=== PATIENT | female | born 1980 | race Caucasian/White ===

== ENCOUNTER 2017-02-11 10:24 | Emergency (ER) | payer OTHER ==
[~2017-02-11] VITALS: Ht 162.6 cm; Wt 68.2 kg
[2017-02-11] MEDS ORDERED: CELE40TA PO (10:34)
[2017-02-11] MEDS ORDERED: PROMETHAZINE INJ 25 MG/ML VIAL (J2550) IV ONE (11:00)
[2017-02-11] MEDS ORDERED: NS 500 ML IV ONE ×2 (11:00→13:30)
[2017-02-11] MEDS ORDERED: KETOROLAC 30 MG/ML VIAL (J1885) IV ONE (11:00)
[2017-02-11 11:09] LABS: BASO # 0.1 K/mm3 (0.0-0.2); BASO % 0.8 % (0.0-1.0); EOS # 0.1 K/mm3 (0.0-0.50); EOS % 1.4 % (0.0-3.0); LARGE UNSTAINED CELL # 0.1 K/mm3 (0.0-0.4); LYMPH # 2.5 K/mm3 (1.5-4.5); LYMPH % 26.8 % (24.0-44.0); MEAN CORPUSCULAR HEMOGLOBIN 32.4 pg (27.0-33.0); MEAN CORPUSCULAR HGB CONC 35.8 g/dl (32.0-36.5); MEAN CORPUSCULAR VOLUME 90.4 fl (80.0-96.0); MONO # 0.3 K/mm3 (0.0-0.8); MONO % 3.4 % (0.0-5.0); NEUTROPHILS % 66.7 % (36.0-66.0); PLATELET COUNT, AUTOMATED 273 k/mm3 (150-450); RED CELL DISTRIBUTION WIDTH 12.3 % (11.5-14.5)
[2017-02-11 11:15] LABS: CONTROL LINE HCG INT CTR LINE PRESENT
[2017-02-11 11:22] LABS: ANION GAP 8 MEQ/L (8-16); BLOOD UREA NITROGEN 8 MG/DL (7-18); CARBON DIOXIDE LEVEL 24 MEQ/L (21-32); CHLORIDE LEVEL 109 MEQ/L (98-107); CREATININE FOR GFR 0.72 MG/DL (0.55-1.02); GLOMERULAR FILTRATION RATE > 60.0 (>60); GLUCOSE, FASTING 87 MG/DL (70-105); POTASSIUM SERUM 3.9 MEQ/L (3.5-5.1); SODIUM LEVEL 141 MEQ/L (136-145)
[2017-02-11] MEDS ORDERED: MORPHINE 4 MG/ML 1ML SYRINGE IV ONE ×2 (11:45→13:30)
[2017-02-11 14:21] VITALS: BP 113/69
[2017-02-11] MEDS ORDERED: IBUP80TA PO (14:23)
--- NOTE | 2017-02-11 18:01 | REP ---
CT abdomen pelvis without IV or oral contrast: Renal stone protocol. History: Right lower quadrant pain. Evaluate for stone. No comparison study. Findings: The preliminary digital poiser radiograph demonstrates an unremarkable bowel gas pattern. The lung bases are clear. The liver and the spleen are normal in size homogeneous in texture. No adrenal lesion is seen on either side. The gallbladder and the pancreas are unremarkable. There are sutures and clips adjacent to the cecal tip consistent with previous appendectomy. Small and large intestinal bowel loops are unremarkable. No uterine or ovarian abnormality is appreciated. There is an intrarenal calculus in the left kidney lower pole collecting system 3 mm in diameter. No other intrarenal calculus is seen on either side. No ureteral calculi are seen on either side. No hydronephrosis seen. No abdominal wall defect is appreciated. Bone window settings demonstrate mild wedging at T12 and L1 vertebral body consistent with an old mild wedge compression. No bony destructive lesion is seen. Impression: 1. 3 mm intrarenal calculus lower pole left kidney without hydronephrosis. No ureteral calculus seen. 2. Status post appendectomy. No other acute intra-abdominal abnormality. 3. Mild old anterior wedging T12 and L1 vertebral bodies. Signed by Zeeshan Wyman MD 02/15/2017 08:10 A
== END 2017-02-11 14:50 | disposition home or self-care (01) ==
LOC: M ED 10:24
DX: R10.31 Right lower quadrant pain (principal); Z72.0 Tobacco use
CPT/HCPCS: 36415; 74176; 80048; 81001; 82360; 84703; 85025; 87086; 96361; 96374; 96375; 96376; 99284; J1885

== ENCOUNTER 2017-07-03 06:58 | Emergency (ER) | payer OTHER ==
[~2017-07-03 06:58] MED LIST: ONDANSETRON 4 MG ORAL DISINTEGRATING TAB (S0181) As Ordered
[2017-07-03] MEDS: MORPHINE 10 MG/ML 1ML VIAL IV ×2 (07:37→14:26)
[2017-07-03] MEDS: ONDANSETRON 4 MG ORAL DISINTEGRATING TAB (S0181) PO (07:37)
[2017-07-03 07:39] LABS: BASO # 0.1 10^3/uL (0.0-0.2); BASO % 0.5 % (0.0-1.0); EOS # 0.1 10^3/uL (0.0-0.50); EOS % 0.8 % (0.0-3.0); HEMATOCRIT 42.2 % (36.0-47.0); HEMOGLOBIN 15.1 g/dl (12.0-16.0); IMMATURE GRANULOCYTE % 0.3 % (0-0); LYMPH # 4.2 10^3/uL (1.5-4.5); LYMPH % 32.2 % (24.0-44.0); MEAN CORPUSCULAR HEMOGLOBIN 31.7 pg (27.0-33.0); MEAN CORPUSCULAR HGB CONC 35.8 g/dl (32.0-36.5); MEAN CORPUSCULAR VOLUME 88.5 fl (80.0-96.0); MONO # 0.6 10^3/uL (0.0-0.8); MONO % 4.8 % (0.0-5.0); NEUTROPHILS % 61.4 % (36.0-66.0); PLATELET COUNT, AUTOMATED 305 10^3/uL (150-450); RED BLOOD COUNT 4.77 10^6/uL (4.00-5.40); RED CELL DISTRIBUTION WIDTH 12.1 % (11.5-14.5); WHITE BLOOD COUNT 13.1 10^3/uL (4.0-10.0)
[2017-07-03 07:54] LABS: CONTROL LINE HCG INT CTR LINE PRESENT; HCG, SERUM QUALITATIVE NEGATIVE (NEGATIVE)
[2017-07-03 07:57] LABS: ALBUMIN 4.2 GM/DL (3.2-5.2); ALBUMIN/GLOBULIN RATIO 1.17 (1.00-1.93); ALKALINE PHOSPHATASE 109 U/L (45-117); ALT/SGPT 18 U/L (12-78); AMYLASE 56 U/L (25-115); ANION GAP 8 MEQ/L (8-16); AST/SGOT 12 U/L (7-37); BILIRUBIN,DIRECT < 0.1 MG/DL (0.0-0.2); BILIRUBIN,TOTAL 0.2 MG/DL (0.2-1.0); BLOOD UREA NITROGEN 8 MG/DL (7-18); CALCIUM LEVEL 9.5 MG/DL (8.5-10.1); CARBON DIOXIDE LEVEL 23 MEQ/L (21-32); CHLORIDE LEVEL 107 MEQ/L (98-107); CREATININE FOR GFR 0.75 MG/DL (0.55-1.02); GLOMERULAR FILTRATION RATE > 60.0 (>60); GLUCOSE, FASTING 101 MG/DL (70-105); LIPASE 301 U/L (73-393); POTASSIUM SERUM 3.9 MEQ/L (3.5-5.1); SODIUM LEVEL 138 MEQ/L (136-145); TOTAL PROTEIN 7.8 GM/DL (6.4-8.2)
[2017-07-03] MEDS: MORPHINE 2 MG/ML 1ML SYRINGE IV (08:05)
[2017-07-03 08:08] LABS: APPEARANCE, URINE HAZY (CLEAR); BACTERIA, URINE AUTO NEGATIVE (NEGATIVE); BILIRUBIN, URINE AUTO NEGATIVE (NEGATIVE); BLOOD, URINE BLOOD NEGATIVE (NEGATIVE); COLOR, URINE YELLOW (YELLOW); GLUCOSE, URINE (UA) AUTO NEGATIVE (NEGATIVE); KETONE, URINE AUTO NEGATIVE (NEGATIVE); LEUKOCYTE ESTERASE, URINE AUTO NEGATIVE (NEGATIVE); NITRITE, URINE AUTO NEGATIVE (NEGATIVE); PROTEIN, URINE AUTO NEGATIVE (NEGATIVE); RBC, URINE AUTO 2 /HPF (0-3); SPECIFIC GRAVITY URINE AUTO 1.006 (1.002-1.035); SQUAMOUS EPITHELIAL CELL UR AU 3 /HPF (0-6); UROBILINOGEN, URINE AUTO 0.2 mg/dL (0.0-2.0); WBC, URINE AUTO 1 /HPF (0-3)
[2017-07-03] MEDS ORDERED: diphenhydrAMINE INJ 50MG/ML VIAL (J1200) IV (09:45)
[2017-07-03] MEDS ORDERED: METOCLOPRAMIDE INJ 10MG/2ML VIAL (J2765) IV (09:45)
[2017-07-03] MEDS: MORPHINE 4 MG/ML 1ML SYRINGE IV (09:49)
[2017-07-03] MEDS: NS 1,000 ML IV (10:30)
[2017-07-03] MEDS: HYDROmorphone HCL 1 MG/ML SYRINGE (J1170) IV ×2 (10:44→12:51)
[2017-07-03] MEDS ORDERED: ISOVUE-370 76% 100ML VIAL (Q9967) As Ordered (10:44)
[2017-07-03] MEDS ORDERED: HYDROmorphone 2 MG TAB PO (10:45)
== END 2017-07-03 14:52 | disposition home or self-care (01) ==
LOC: M ED 06:58
DX: R10.10 Upper abdominal pain, unspecified (principal); R11.2 Nausea with vomiting, unspecified; F33.9 Major depressive disorder, recurrent, unspecified; F17.210 Nicotine dependence, cigarettes, uncomplicated; Z79.899 Other long term (current) drug therapy; Z88.5 Allergy status to narcotic agent; Z87.442 Personal history of urinary calculi; Z98.890 Other specified postprocedural states
CPT/HCPCS: J1170

== ENCOUNTER 2018-10-12 07:19 | Inpatient (IN) | payer OTHER ==
[~2018-10-12] VITALS: Ht 162.6 cm; Wt 78.8 kg
[2018-10-12] VITALS (14 sets, daily range): BP systolic 118–140; BP diastolic 65–91
[~2018-10-12 07:19] MED LIST changes: +CELE40TA PO; +COLA100C5 PO; +IBUP80TA PO; -ONDANSETRON 4 MG ORAL DISINTEGRATING TAB (S0181) As Ordered; +OXYC1TAB23 PO
[2018-10-12] MEDS ORDERED: AZO-95TA3 PO ×2 (07:31→08:37)
[2018-10-12] MEDS ORDERED: TAMS1CAP17 PO (07:31)
[2018-10-12] MEDS ORDERED: ONDANSETRON 4MG/2ML VIAL (J2405) IV ONE (08:00)
[2018-10-12] MEDS ORDERED: MORPHINE 4 MG/ML 1ML VIAL/SYRINGE (J2270) IV ONE ×2 (08:00→08:45)
[2018-10-12] MEDS ORDERED: NS 1,000 ML IV ONE (08:00)
[2018-10-12 08:24] LABS: BILIRUBIN, URINE MANUAL OBSCURED (NEGATIVE); GLUCOSE, URINE (UA) MANUAL OBSCURED mg/dL (NEGATIVE); KETONE, URINE MANUAL OBSCURED mg/dL (NEGATIVE); UROBILINOGEN, URINE MANUAL OBSCURED mg/dl (NORMAL)
[2018-10-12 08:33] LABS: BACTERIA, URINE SMALL AMOUNT; HYALINE CAST, URINE NONE SEEN /lpf (0-1); SQUAMOUS EPITHELIAL CELL URINE SMALL AMOUNT /hpf (SMALL AMT)
[2018-10-12] MEDS ORDERED: IBUP-1091 PO (08:37)
[2018-10-12] MEDS ORDERED: ACET-907 PO (08:37)
[2018-10-12 08:54] LABS: BASO % 0.1 % (0.0-1.0); HEMOGLOBIN 10.7 g/dl (12.0-15.5); LYMPH # 1.7 10^3/uL (1.5-4.5); LYMPH % 11.5 % (24.0-44.0); MEAN CORPUSCULAR HEMOGLOBIN 31.6 pg (27.0-33.0); MEAN CORPUSCULAR HGB CONC 33.4 g/dl (32.0-36.5); MEAN CORPUSCULAR VOLUME 94.4 fl (80.0-96.0); MONO # 0.7 10^3/uL (0.0-0.8); NEUTROPHILS % 82.7 % (36.0-66.0); PLATELET COUNT, AUTOMATED 259 10^3/uL (150-450); RED BLOOD COUNT 3.39 10^6/uL (4.00-5.40); WHITE BLOOD COUNT 14.5 10^3/uL (4.0-10.0)
[2018-10-12 09:00] LABS: ALBUMIN 3.5 GM/DL (3.2-5.2); ALT/SGPT 25 U/L (12-78); BILIRUBIN,DIRECT 0.2 MG/DL (0.0-0.2); BILIRUBIN,TOTAL 0.9 MG/DL (0.2-1.0); BLOOD UREA NITROGEN 10 MG/DL (7-18); CALCIUM LEVEL 8.2 MG/DL (8.5-10.1); CARBON DIOXIDE LEVEL 22 MEQ/L (21-32); CHLORIDE LEVEL 110 MEQ/L (98-107); CREATININE FOR GFR 0.72 MG/DL (0.55-1.30); GLOMERULAR FILTRATION RATE > 60.0 (>60); GLUCOSE, FASTING 114 MG/DL (70-100); LIPASE 69 U/L (73-393); POTASSIUM SERUM 3.7 MEQ/L (3.5-5.1); SODIUM LEVEL 140 MEQ/L (136-145)
[2018-10-12] MEDS ORDERED: fentaNYL 100 MCG/2 ML INJECTION (J3010) IV ONE (09:00)
[2018-10-12] MEDS ORDERED: FLEET ENEMA PR PRN (09:15)
[2018-10-12] MEDS ORDERED: NS 1,000 ML IV SCH ×2 (09:21→17:08)
[2018-10-12] MEDS ORDERED: diphenhydrAMINE INJ 50MG/ML VIAL (J1200) IV PRN ×2 (09:30→17:15)
[2018-10-12] MEDS ORDERED: CIPROFLOXACIN 400 MG in APPROPRIATE DILUENT 1 EA IV ONE (09:30)
[2018-10-12] MEDS ORDERED: KETOROLAC 30 MG/ML VIAL (J1885) IV ONE ×2 (09:30→12:00)
[2018-10-12] MEDS ORDERED: NS 2,000 ML IV ONE (09:30)
[2018-10-12] MEDS ORDERED: NALOXONE INJ 0.4 MG/1 ML VIAL (J2310) IV PRN ×2 (09:30→17:15)
[2018-10-12] MEDS ORDERED: MORPHINE 1MG/ML IN 0.9% NACL 100ML IV BAG IV PRN ×2 (09:30→17:15)
[2018-10-12] MEDS ORDERED: ONDANSETRON 4MG/2ML VIAL (J2405) IV PRN ×2 (09:30→17:15)
[2018-10-12] MEDS ORDERED: ACETAMINOPHEN TAB 650MG DOSE (2X325MG) PO PRN (09:30)
[2018-10-12] MEDS ORDERED: EPIDURAL/PCA KEYS XX PRN ×2 (09:30→17:15)
[2018-10-12] MEDS ORDERED: NALBUPHINE HCL 10 MG/ML AMP (J2300) IV PRN ×2 (09:30→17:15)
--- NOTE | 2018-10-12 09:31 | REP ---
CT ABDOMEN AND PELVIS WITHOUT CONTRAST: CT abdomen and pelvis performed without oral or IV contrast. Sagittal and coronal reconstruction images are performed. No infiltrate is seen in either lung with mild dependent atelectatic changes. The liver, gallbladder, spleen, adrenals, pancreas and right kidney are grossly unremarkable. The left kidney demonstrates mild hydronephrosis. There is also mild diffuse left hydroureter. No renal or ureteral calculus is seen. There is no abdominal aortic aneurysm. There is no adenopathy. There is no free air in the abdomen or pelvis. No bowel wall thickening is seen. There is no evidence of bowel obstruction. Metallic clips and sutures are seen in the right lower quadrant. No pelvic mass is seen. Urinary bladder is not well distended. There is trace free fluid in the pelvis. IMPRESSION: Mild left hydroureteronephrosis. No renal or ureteral calculus. Trace free fluid in the pelvis may be physiologic. Electronically Signed by Magnus Cage MD 10/13/2018 12:04 P
[2018-10-12] MEDS: NICOTINE 14 MG/24 HR TRANSDERMAL TD SCH (16:01)
--- NOTE | 2018-10-12 16:26 | HPE ---
DATE OF ADMISSION: 10/12/2018 PRIMARY CARE PHYSICIAN: None. CHIEF COMPLAINT: Flank pain. HISTORY OF PRESENTING ILLNESS: Left-sided flank pain. HISTORY OF PRESENTING ILLNESS: This is a 38-year-old female with history of recurrent kidney stones initially treated in [place] and more recently at [facility] where she was admitted from Tuesday night until yesterday. Patient underwent cystoscopy, stone extraction, and stent placement and was instructed to pull out the stent in 48 hours. Patient woke up this morning with excruciating left-sided pain, rating her pain a 10/10, stabbing. She noted that the stent was partially out. She then proceeded to pull this out. She had orange urine. No hematuria. No fever or chills. No cloudy urine. Denies any dysuria, urgency, or any frequency. Pain was so severe this prompted her to come to the emergency room (ER) for further management. Due to intractable pain, hospitalist was asked to admit the patient for pain control. CT abdomen and pelvis showed mild left hydroureteronephrosis. No renal or ureteral calculus. There was trace free fluid in the pelvis which may be physiologic. White count was slightly elevated at 14.5. Patient was given ciprofloxacin in the ER times one. Urologist, Dr. Escamilla, was consulted by the emergency room and patient was admitted to hospitalist service for two midnights as an inpatient for pain control. At this time, patient denies any nausea, vomiting, decreased appetite, chest pain, pressure or tightness, shortness of breath, palpitations, lightheadedness, dizziness. Denies any diarrhea, constipation, upper or lower extremity weakness, changes in vision, sore throat, cough, earache. Denies any history of depression or anxiety. All other systems are essentially negative. PAST MEDICAL HISTORY: Recurrent kidney stones, lung nodule which was an incidental finding. HOME MEDICATIONS: - as needed ibuprofen - Tylenol - Azo 95 mg four times a day - tamsulosin 0.4 daily PAST SURGICAL HISTORY: Appendectomy, three sections, cystoscopy, and stone extraction for kidney stones, cyst of the right wrist, was a ganglion cyst, excised. ALLERGIES: No known drug allergies. SOCIAL HISTORY: Smokes 1 1/2 packs per day for 20 years. No alcohol use. A grades 1 6 tutor by trade. FAMILY HISTORY: Mother alive, age 66, with hypertension, bilateral hip replacement. Father alive, age 65, smoker, was found to have a benign lung nodule. REVIEW OF SYSTEMS: Per history of present illness (HPI). 12-point system otherwise negative. PHYSICAL EXAMINATION: Temperature 98.3, pulse 84, respiratory rate 20, blood pressure 118/65, 96% on room air. GENERALLY: Patient is awake, alert, oriented times three, answering questions appropriately. No respiratory distress. Pupils are round and reactive. Extraocular muscles are intact. Normocephalic, atraumatic. Neck is supple, full range of motion. No cervical lymphadenopathy or thyromegaly. Moist mucous membranes. LUNGS: Clear to auscultation. No wheezing, rales, or rhonchi. Air entry is equal bilaterally. HEART: S1, S2, sinus rhythm. No murmurs, rubs, or gallops. ABDOMEN: Soft, tender in the left CVA. No rebound or guarding. Positive bowel sounds times four quadrants. Obese abdomen. EXTREMITIES: No cyanosis, clubbing, or any pitting edema. LABORATORY DATA: White count 14.5, hemoglobin 10.7, hematocrit 32, platelet count 259, sodium 140, potassium 3.7, chloride 110, bicarbonate 22, BUN 10, creatinine 0.72, glucose 114, calcium 8.2, total bilirubin 0.7, direct bilirubin 0.2, AST 17, ALT 25, alkaline phosphatase 69, total protein 6, albumin 3.5, lipase of 69. Urinalysis: Obscured, pH of 6, 3-5 RBCs, no WBCs, small amount of bacteria. Two sets of blood cultures are negative. Urine culture is pending. CT abdomen and pelvis on 10/12/2018 shows mild left hydroureteronephrosis, no renal or ureteral calculus. Trace free fluid in the pelvis may be physiologic. No infiltrate in either lung with mild dependent atelectatic change. Liver, gallbladder, spleen, adrenals, pancreas, right kidney are grossly unremarkable. Left kidney demonstrates mild hydronephrosis and mild diffuse left hydroureter. No renal or ureteral calculus is seen. There is no abdominal aortic aneurysm. No free air in the abdomen or pelvis. No bowel wall thickening. No evidence of bowel obstruction. Metallic clips and sutures are seen in the right lower quadrant. No pelvic mass is seen. Urinary bladder is not well distended. There is trace free fluid in the pelvis. ASSESSMENT AND PLAN: This is a 38-year-old female with history of recurrent kidney stones, active smoker, 1 1/2 packs a day for 20 years, still actively smoking, history of lung nodule, not evaluated in the past, presents to the emergency room after a stent was placed at [facility] on Tuesday night, discharged yesterday, now presents with partially dislodged stent which was supposed to be removed by the patient after 48 hours. She presents to the emergency room (ER) with intractable pain and mild left hydroureteronephrosis. Patient will be admitted as an inpatient for two midnights for the following issues: 1. Mild left hydroureteronephrosis. Urology has been consulted, Dr. Escamilla, who will follow the patient. Supportive care for pain with a morphine patient controlled analgesia (SAFEKEEPING CLERK) pump along with IV fluids and antibiotics. For now, we will await urine culture results. Defer to urology for further intervention and management. Patient currently does not have any elevations in creatinine. IV fluids have been given and monitor patient's input and output and monitor for urine retention. May continue patient on Flomax. 2. History of recurrent kidney stones. Outpatient workup warranted and to be done by her primary care physician. At this time, there is no obstructive stone. Urology has been consulted. 3. Active tobacco use. Nicotine patch. Tobacco cessation counseling has been done at the bedside. She is open to taking Chantix as outpatient at hospital discharge as her currently is taking Chantix and has successfully quit smoking. 4. Deep venous thrombosis (DVT) prophylaxis with compression stockings.
[2018-10-12] MEDS: TAMSULOSIN 0.4 MG CAP PO SCH (16:58)
[2018-10-12] MEDS ORDERED: CIPROFLOXACIN 400 MG in APPROPRIATE DILUENT 1 EA IV SCH (22:00)
[2018-10-13] MEDS ORDERED: KETOROLAC 30 MG/ML VIAL (J1885) IM ONE (03:00)
[2018-10-13] MEDS ORDERED: BELLADONNA ALKALOIDS/OPIUM SUPP PR PRN (03:30)
[2018-10-13] MEDS ORDERED: oxyBUTYnin 5 MG TAB PO ONE (03:30)
[2018-10-13 04:00] VITALS: BP 139/88
[2018-10-13] MEDS ORDERED: ALPRAZolam 0.25 MG TAB PO PRN (04:15)
[2018-10-13 07:32] LABS: HEMATOCRIT 32.6 % (36.0-47.0); HEMOGLOBIN 10.5 g/dl (12.0-15.5); MEAN CORPUSCULAR HGB CONC 32.2 g/dl (32.0-36.5); MEAN CORPUSCULAR VOLUME 96.2 fl (80.0-96.0); PLATELET COUNT, AUTOMATED 285 10^3/uL (150-450); RED BLOOD COUNT 3.39 10^6/uL (4.00-5.40)
[2018-10-13] MEDS ORDERED: NICO14PA TD (07:50)
[2018-10-13] MEDS ORDERED: SENN-52 PO (07:53)
[2018-10-13] MEDS ORDERED: VARE1TA PO (07:53)
[2018-10-13] MEDS ORDERED: PEG1POW PO (07:53)
[2018-10-13] MEDS ORDERED: MORP15TA2 PO (07:55)
[2018-10-13] MEDS ORDERED: MORP30TASA PO (07:55)
[2018-10-13 07:59] LABS: BLOOD UREA NITROGEN 11 MG/DL (7-18); CALCIUM LEVEL 8.5 MG/DL (8.5-10.1); CARBON DIOXIDE LEVEL 26 MEQ/L (21-32); CHLORIDE LEVEL 109 MEQ/L (98-107); CREATININE FOR GFR 0.83 MG/DL (0.55-1.30); GLOMERULAR FILTRATION RATE > 60.0 (>60); GLUCOSE, FASTING 98 MG/DL (70-100); POTASSIUM SERUM 4.1 MEQ/L (3.5-5.1); SODIUM LEVEL 140 MEQ/L (136-145)
[2018-10-13 08:00] VITALS: BP 136/89
[2018-10-13] MEDS ORDERED: FUROSEMIDE 40 MG/4 ML VIAL (J1940) IV ONE (08:00)
[2018-10-13] MEDS ORDERED: MORPHINE 30 MG TAB **MSIR PO PRN (08:00)
--- NOTE | 2018-10-13 08:35 | IPNPDOC ---
Date Seen The patient was seen on 10/13/18. Progress Note SUBJECTIVE: Pt c/o severe abdominal pressure,weight gain, and LE edema after receiving 2.6 liters of IVFluids, without sob. She requested MD assessment at 0300am, and was seen by night hospitalist, Dr. Ng, who gave the pt xanax im toradol. Pt asked for Lasix , but did not receive any. Pt's went to [facility] and bought over the counter diurex. Pt took 4 diurex tabs with some improvement in edema. Pt was tearful this morning due to increased edema weight gain, and abdominal discomfort, requesting more lasix. Pt was given 60 mg iv lasix. PHYSICAL EXAMINATION: VITALS: PLS SEE BELOW GENERALLY: Patient is awake, alert, oriented times three, answering questions appropriately. No respiratory distress. Pupils are round and reactive. Extraocular muscles are intact. Normocephalic, atraumatic. Neck is supple, full range of motion. No cervical lymphadenopathy or thyromegaly. Moist mucous membranes. LUNGS: Clear to auscultation. No wheezing, rales, or rhonchi. Air entry is equal bilaterally. HEART: S1, S2, sinus rhythm. No murmurs, rubs, or gallops. ABDOMEN: Soft, tender in the left CVA. No rebound or guarding. Positive bowel sounds times four quadrants. Obese abdomen. no fluid wave EXTREMITIES: (+) 1+ pitting edema LABORATORY DATA: on admission:White count 14.5, hemoglobin 10.7, hematocrit 32, platelet count 259, sodium 140, potassium 3.7, chloride 110, bicarbonate 22, BUN 10, creatinine 0.72, glucose 114, calcium 8.2, total bilirubin 0.7, direct bilirubin 0.2, AST 17, ALT 25, alkaline phosphatase 69, total protein 6, albumin 3.5, lipase of 69. Urinalysis: Obscured, pH of 6, 3-5 RBCs, no WBCs, small amount of bacteria. Two sets of blood cultures are negative. Urine culture is pending. CT abdomen and pelvis on 10/12/2018 shows mild left hydroureteronephrosis, no renal or ureteral calculus. Trace free fluid in the pelvis may be physiologic. No infiltrate in either lung with mild dependent atelectatic change. Liver, gallbladder, spleen, adrenals, pancreas, right kidney are grossly unremarkable. Left kidney demonstrates mild hydronephrosis and mild diffuse left hydroureter. No renal or ureteral calculus is seen. There is no abdominal aortic aneurysm. No free air in the abdomen or pelvis. No bowel wall thickening. No evidence of bowel obstruction. Metallic clips and sutures are seen in the right lower quadrant. No pelvic mass is seen. Urinary bladder is not well distended. There is trace free fluid in the pelvis. ASSESSMENT AND PLAN: This is a 38-year-old female with history of recurrent kidney stones, active smoker, 1 1/2 packs a day for 20 years, still actively smoking, history of lung nodule, not evaluated in the past, presents to the emergency room after a stent was placed at [facility] on Tuesday night, discharged yesterday, now presents with partially dislodged stent which was supposed to be removed by the patient after 48 hours. She presents to the emergency room (ER) with intractable pain and mild left hydroureteronephrosis. Patient will be admitted as an inpatient for two midnights for the following issues: Mild left hydroureteronephrosis. Urology has been consulted, Dr. Escamilla, who will follow the patient. Supportive care for pain with a morphine patient controlled analgesia (TELECOM MANAGER) pump, s/p IV fluids s/p iv cipro. urine cx neg. cipro dced Defer to urology for further intervention and management. Patient currently does not have any elevations in creatinine. IV fluids have been given and monitor patient's input and output and monitor for urine retention. May continue patient on Flomax. History of recurrent kidney stones. Outpatient workup warranted and to be done by her primary care physician. At this time, there is no obstructive stone. Urology has been consulted. check pth calcium urine calcium urine stone analysis. Active tobacco use. Nicotine patch. Tobacco cessation counseling has been done at the bedside. She is open to taking Chantix as outpatient at hospital discharge as her currently is taking Chantix and has successfully quit smoking. LE edema due to overhydration. fluids discontinued. iv lasix x 1. Deep venous thrombosis (DVT) prophylaxis with compression stockings. Disposition: nd home . outpt urology fu and kidney stone workup. A-FIB/CHADSVASC A-FIB History Current/History of A-Fib/PAF?: No Current Oral Anticoagulant The: No VS, I&O, 24H, Fishbone Vital Signs/I&O Vital Signs Date Time Temp Pulse Resp B/P (MAP) Pulse Ox O2 Delivery O2 Flow Rate FiO2 10/13/18 04:00 98.3 77 20 139/88 (105) 94 10/12/18 11:56 Room Air I&O- Last 24 Hours up to 6 AM 10/13/18 06:00 Intake Total 2625 ml Output Total 1775 ml Balance 850 ml Laboratory Data 24H LABS Laboratory Tests 2 10/13/18 06:58: Nucleated Red Blood Cells % (auto) 0.0, Anion Gap 5L, Glomerular Filtration Rate > 60.0, Blood Urea Nitrogen 11, Creatinine 0.83, Sodium Level 140, Potassium Level 4.1, Chloride Level 109H, Carbon Dioxide Level 26, Calcium Level 8.5 CBC/BMP Laboratory Tests 10/13/18 06:58 Red Blood Count 3.39 L, Mean Corpuscular Volume 96.2 H, Mean Corpuscular Hemoglobin 31.0, Mean Corpuscular Hemoglobin Concent 32.2, Red Cell Distribution Width 13.0, Calcium Level 8.5 Microbiology Microbiology 10/12/18 Blood Culture - Preliminary, Resulted No growth after 24 hours . All specim... 10/12/18 Blood Culture - Preliminary, Resulted No growth after 24 hours . All specim... 10/12/18 Urine Culture - Final, Complete MOLLY COPPOLA MD October 13, 2018 08:35
--- NOTE | 2018-10-13 08:47 | DS.PDOC ---
Discharge Summary General Date of Admission October 12, 2018 at 09:18 Date of Discharge October 13, 2018 Discharge Summary DISCHARGE DIAGNOSES: MILD LEFT HYDRONEPHROSIS S/P STENT WITH INTRACTABLE PAIN MILD LEFT HYDROURETER HISTORY OF RECURRENT KIDNEY STONES ACTIVE TOBACCO SMOKING-CESSATION COUNSELLING PROVIDED FLUID OVERLOAD WITH LOWER EXTREMITY EDEMA DISCHARGE MEDICATIONS:PLS SEE BELOW HISTORY OF PRESENTING ILLNESS: This is a 38-year-old female with history of recurrent kidney stones, active smoker, 1 1/2 packs a day for 20 years, still actively smoking, history of lung nodule, not evaluated in the past, presents to the emergency room after a stent was placed at [facility] on Tuesday night, discharged yesterday, now presents with partially dislodged stent which was supposed to be removed by the patient after 48 hours. She presents to the emergency room (ER) with intractable pain and mild left hydroureteronephrosis. Patient will be admitted as an inpatient for two midnights for the following issues: HOSPITAL COURSE: Pain control after passing a urinary stent with residual Mild left hydroureteronephrosis. Urology has been consulted, Dr. Escamilla, who will follow the patient. Supportive care for pain with a morphine patient controlled analgesia (MAINTENANCE AND REPAIR WORKER) pump, s/p IV fluids s/p iv cipro. urine cx neg. cipro dced Defer to urology for further intervention and management. Patient currently does not have any elevations in creatinine. IV fluids have been given and monitor patient's input and output and monitor for urine retention. May continue patient on Flomax. 100mg morphine via MAINTENANCE AND REPAIR WORKER pump was used over the past 24 hrs. pt will be given controlled release morphine 30 mg bid x 5 days, #ten tabs , and for breakthrough pain, immediate release morphine 15mg po [id number] rn max dose 6tabs daily x 5days #thirty 30 tabs. bowel regimen with [id number] bid and miralax daily. History of recurrent kidney stones. Outpatient workup warranted and to be done by her primary care physician. At this time, there is no obstructive stone. Urology has been consulted. check pth calcium urine calcium urine stone analysis. Active tobacco use. Nicotine patch. Tobacco cessation counseling has been done at the bedside. She is open to taking Chantix as outpatient at hospital discharge as her currently is taking Chantix and has successfully quit smoking. LE edema due to overhydration. fluids discontinued. iv lasix x 1. Pt c/o severe abdominal pressure,weight gain, and LE edema after receiving 2.6 liters of IVFluids, without sob. She requested MD assessment at 0300am, and was seen by night hospitalist, Dr. Ng, who gave the pt xanax im toradol. Pt asked for Lasix , but did not receive any. Pt's went to [facility] and bought over the counter diurex. Pt took 4 diurex tabs with some improvement in edema. Pt was tearful this morning due to increased edema weight gain, and abdominal discomfort, requesting more lasix. Pt was given 60 mg iv lasix. Deep venous thrombosis (DVT) prophylaxis with compression stockings. Disposition: dc home . outpt urology fu and kidney stone workup. DISCHARGE PHYSICAL EXAMINATION: VITALS: PLS SEE BELOW GENERALLY: Patient is awake, alert, oriented times three, answering questions appropriately. No respiratory distress. Pupils are round and reactive. Extraocular muscles are intact. Normocephalic, atraumatic. Neck is supple, full range of motion. No cervical lymphadenopathy or thyromegaly. Moist mucous membranes. LUNGS: Clear to auscultation. No wheezing, rales, or rhonchi. Air entry is equal bilaterally. HEART: S1, S2, sinus rhythm. No murmurs, rubs, or gallops. ABDOMEN: Soft, diminished tenderness in the left CVA. No rebound or guarding. Positive bowel sounds times four quadrants. Obese abdomen. no fluid wave EXTREMITIES: (+) 1+ pitting edema LABORATORY DATA: on admission:White count 14.5, hemoglobin 10.7, hematocrit 32, platelet count 259, sodium 140, potassium 3.7, chloride 110, bicarbonate 22, BUN 10, creatinine 0.72, glucose 114, calcium 8.2, total bilirubin 0.7, direct bilirubin 0.2, AST 17, ALT 25, alkaline phosphatase 69, total protein 6, albumin 3.5, lipase of 69. Urinalysis: Obscured, pH of 6, 3-5 RBCs, no WBCs, small amount of bacteria. Two sets of blood cultures are negative. Urine culture is pending. CT abdomen and pelvis on 10/12/2018 shows mild left hydroureteronephrosis, no renal or ureteral calculus. Trace free fluid in the pelvis may be physiologic. No infiltrate in either lung with mild dependent atelectatic change. Liver, gallbladder, spleen, adrenals, pancreas, right kidney are grossly unremarkable. Left kidney demonstrates mild hydronephrosis and mild diffuse left hydroureter. No renal or ureteral calculus is seen. There is no abdominal aortic aneurysm. No free air in the abdomen or pelvis. No bowel wall thickening. No evidence of bowel obstruction. Metallic clips and sutures are seen in the right lower quadrant. No pelvic mass is seen. Urinary bladder is not well distended. There is trace free fluid in the pelvis. TIME SPENT ON DISCHARGE: 30 MIN Vital Signs/I&Os Vital Signs Date Time Temp Pulse Resp B/P (MAP) Pulse Ox O2 Delivery O2 Flow Rate FiO2 10/13/18 04:00 98.3 77 20 139/88 (105) 94 10/12/18 11:56 Room Air I&O- Last 24 Hours up to 6 AM 10/13/18 06:00 Intake Total 2625 ml Output Total 1775 ml Balance 850 ml Laboratory Data Labs 24H Laboratory Tests 2 10/13/18 06:58: Nucleated Red Blood Cells % (auto) 0.0, Anion Gap 5L, Glomerular Filtration Rate > 60.0, Blood Urea Nitrogen 11, Creatinine 0.83, Sodium Level 140, Potassium Level 4.1, Chloride Level 109H, Carbon Dioxide Level 26, Calcium Level 8.5 CBC/BMP Laboratory Tests 10/13/18 06:58 Red Blood Count 3.39 L, Mean Corpuscular Volume 96.2 H, Mean Corpuscular Hemoglobin 31.0, Mean Corpuscular Hemoglobin Concent 32.2, Red Cell Distribution Width 13.0, Calcium Level 8.5 Microbiology Microbiology 10/12/18 Blood Culture - Preliminary, Resulted No growth after 24 hours . All specim... 10/12/18 Blood Culture - Preliminary, Resulted No growth after 24 hours . All specim... 10/12/18 Urine Culture - Final, Complete Discharge Medications Scheduled Morphine Sulfate (Morphine Sulfate ER) 30 Mg Tablet.er, 30 MG PO BID Nicotine (Nicotine Patch) 14 Mg Patch.td24, 1 PATCH TD DAILY Polyethylene Glycol 3350 (Polyethylene Glycol 3350) 17 Gm Powd.pack, 1 PKT PO DAILY Sennosides/Docusate Sodium (Senna Plus Tablet) 1 Each Tablet, 2 TAB PO BID Tamsulosin Hcl (Tamsulosin HCl) 0.4 Mg Capsule, 0.4 MG PO DAILY, (Reported) Varenicline (Chantix) 1 Mg Tablet, 1 MG PO DAILY Scheduled PRN Acetaminophen (Tylenol) 325 Mg Tablet, 650 MG PO QID PRN for PAIN, (Reported) Morphine Sulfate (Morphine Sulfate) 15 Mg Tablet, 15 MG PO Q4HP PRN for pain Phenazopyridine HCl (Azo Urinary Pain Relief) 95 Mg Tablet, 95 MG PO QID PRN for UTI SYPTOMS, (Reported) Allergies Coded Allergies: No Known Allergies (Unverified , 10/12/18) MOLLY COPPOLA MD October 13, 2018 08:47
[2018-10-13] MEDS ORDERED: KETOROLAC 30 MG/ML VIAL (J1885) IV PRN (09:00)
[2018-10-13] MEDS ORDERED: oxyBUTYnin 5 MG TAB PO SCH (09:00)
[2018-10-13] MEDS ORDERED: MIRALAX *UNIT DOSE* 17GM PACKET PO SCH (09:00)
[2018-10-13] MEDS ORDERED: MORPHINE 15 MG SA TAB PO ONE (09:00)
[2018-10-13] MEDS ORDERED: SENOKOT S TAB PO SCH (09:00)
[2018-10-13] MEDS: NICOTINE 14 MG/24 HR TRANSDERMAL TD SCH (09:00)
[2018-10-13] MEDS: TAMSULOSIN 0.4 MG CAP PO SCH (09:00)
[2018-10-13] MEDS ORDERED: PILL CRUSHER/CUTTER 1 EACH XX PRN (09:15)
== END 2018-10-13 09:41 | disposition home or self-care (01) | DRG 694 ==
LOC: M ED 07:19 → EDBD 07:19 → M ED INP 09:18 → M PED 12:05
PROVIDERS: ADMIT General Practice; ATTEND General Practice
DX: N13.30 Unspecified hydronephrosis (principal); R60.0 Localized edema; F17.200 Nicotine dependence, unspecified, uncomplicated; Z79.899 Other long term (current) drug therapy; Z87.442 Personal history of urinary calculi